=== PATIENT | female | born 1940 | race Hispanic/Latino ===

== ENCOUNTER → 2017-12-10 | Day surgery (SDC) | payer MEDICARE, BC ==
[2017-12-08 12:04] LABS: BASOPHILS % 0.6 % (0.0-1.0); EOSINOPHILS % 0.1 % (0.0-6.0); HEMATOCRIT 41.1 % (34.2-44.1); HEMOGLOBIN 13.4 g/dL (12.0-16.0); LYMPHOCYTES # (AUTO) 1.8 (1.0-3.2); LYMPHOCYTES % 25.5 % (18.0-39.1); MEAN CORPUSCULAR HEMOGLOBIN 31.6 pg (28-32); MEAN CORPUSCULAR HGB CONC 32.6 g/dL (31-35); MEAN CORPUSCULAR VOLUME 96.9 fL (81-99); MONOCYTES # (AUTO) 0.5 (0.2-0.8); MONOCYTES % 6.7 % (4.4-11.3); NEUTROPHILS # (AUTO) 4.8 (2.1-6.9); NEUTROPHILS % 66.7 % (38.7-80.0); PLATELET COUNT 214 x10e3/uL (140-360); RED BLOOD COUNT 4.24 x10e6/uL (3.6-5.1); RED CELL DISTRIBUTION WIDTH 13.1 % (11.7-14.4)
--- NOTE | 2017-12-08 12:28 | Diagnostic Imaging Report ---
PROCEDURE: Frontal and lateral views of the chest. COMPARISON: Chest x-ray 08/17/2014. INDICATIONS: PRE-OP, PORT REMOVAL. DENIES CHEST COMPLAINTS FINDINGS: Lines/tubes: Right-sided portacatheter with tip at the atrial caval junction. Median sternotomy wires are present and intact. Lungs: The lungs are well inflated and clear. Calcified granuloma in the right lung is unchanged. Calcified hilar lymph nodes are unchanged. There is no evidence of pneumonia or pulmonary edema. Pleura: There is no pleural effusion or pneumothorax. Heart and mediastinum: The heart and the mediastinum are normal. Atherosclerotic calcifications in the aorta remain unchanged. Bones: No acute bony abnormality. IMPRESSION: No acute cardiopulmonary disease. Dictated by: Sebastian Matt M.D. on 12/08/2017 at 12:30 Electronically approved by: Sebastian Matt M.D. on 12/08/2017 at 12:30
[2017-12-08 12:34] LABS: ANION GAP 12.8 mmol/L (8-16); CALCIUM 9.6 mg/dL (8.4-10.2); CREATININE, SERUM 1.35 mg/dL (0.57-1.11); POTASSIUM 3.8 mmol/L (3.5-5.1)
[~2017-12-10] MED LIST: AMLODIPINE BESY10 MG PO; AZOR 10-40 MG1 EACH PO; BUPIVACAINE 0.25%/EPI 30ML SDV INJ ONE; CARAFATE1 GM PO; DEXAMETHASONE SOD PHOS INJ 4 MG/ML VIAL ONE; EVISTA60 MG PO; KEFLEX500 MG PO; LIDOCAINE HCL 2% LOCAL INJ 5 ML SDV VIAL INJ ONE; MECLIZINE HCL12.5 MG PO; METOPROLOL TART50 MG PO; NEXIUM40 MG PO; NORCO 7.5-3251 EACH PO; ONDANSETRON HCL INJ 2 MG/ML VIAL ONE; PANTOPRAZOLE SO40 MG PO; PROPOFOL IV EMULSION 10 MG/ML 20 ML VIAL ONE; SEVOFLURANE INHAL SOLN 250 ML PEN BTL ONE; SIMVASTATIN40 MG PO
--- OUTSIDE RECORDS SUMMARY | 2017-12-10 06:23 | XMS REPORT ---
[facility] Address Unknown Phone Unavailable Care Team Providers Care Drain Cleaner Name Role Phone JEREMY HAWK Unavailable Unavailable Problems This patient has no known problems. Allergies, Adverse Reactions, Alerts This patient has no known allergies or adverse reactions. Medications This patient has no known medications. Results Test Description Test Time Test Comments Text Results Atomic Results Result Comments CHEST 2 VIEWS [place] [address] Patient Name: RYLAND OSMAN MR #: [id number] : 1940 Age/Sex: 77/F Req #: [id number] Adm Physician: Ordered by: JEREMY HAWK MD Report #: [id number] Location: OR Room/Bed: Procedure: [id number] DX/CHEST 2 VIEWS Exam Date: Exam Time: REPORT STATUS: Signed PROCEDURE: Frontal and lateral views of the chest. COMPARISON: Chest x-ray 08/17/2014. INDICATIONS: PRE-OP, PORT REMOVAL. DENIES CHEST COMPLAINTS FINDINGS: Lines/tubes: Right-sided portacatheter with tip at the atrial caval junction. Median sternotomy wires are present and intact. Lungs: The lungs are well inflated and clear. Calcified granuloma in the right lung is unchanged. Calcified hilar lymph nodes are unchanged. There is no evidence of pneumonia or pulmonary edema. Pleura: There is no pleural effusion or pneumothorax. Heart and mediastinum: The heart and the mediastinum are normal. Atherosclerotic calcifications in the aorta remain unchanged. Bones: No acute bony abnormality. IMPRESSION: No acute cardiopulmonary disease. Dictated by: James Matt M.D. on 12/08/2017 at 12:30 Electronically approved by: James Matt M.D. on 12/08/2017 at 12:30 Dictated By: JAMES MATT MD 1230 Transcribed By: LITA on 12/08/17 1230 COPY TO: JEREMY HAWK MD
--- NOTE | 2017-12-10 10:26 | Operative Report ---
DATE OF PROCEDURE: December 10, 2017 PREOPERATIVE DIAGNOSIS: Malfunctioning venous access port. POSTOPERATIVE DIAGNOSIS: Malfunctioning venous access port. OPERATION PERFORMED: Excision of right subclavian venous access port. ANESTHESIA: General. COMPLICATIONS: None. ESTIMATED BLOOD LOSS: Minimal. DESCRIPTION OF PROCEDURE: With the patient lying in bed in the supine position, under good general anesthesia, the left chest was prepped with Betadine solution and draped in the usual manner. The area overlying the port was then infiltrated with 1/4 percent Marcaine with epinephrine. An incision was made. It was carried down through the subcutaneous tissue and through the capsule of the Port-A-Cath. The Port-A-Cath was being held in place by 2 sutures of Ethibond which were then cut. The catheter was removed in its entirety without any difficulty. The capsule of the venous access port was then closed with interrupted sutures of 3-0 Vicryl, and the skin was closed with subcuticular 5-0 Vicryl. Benzoin and Steri-Strips were applied. A dressing was placed. The sponge, lap and needle count was correct. Patient tolerated the procedure well and returned to the recovery room in stable condition. Job#: [id number]
== END | disposition home or self-care (01) ==
LOC: OR 06:21
PROVIDERS: ATTEND Surgery
CPT/HCPCS: 36415; 71046; 80048; 85025; 93005; J1100; J2001; J2405

== ENCOUNTER → 2018-03-17 | Outpatient (CLI) | payer MEDICARE, BC ==
[~2018-03-17] MED LIST changes: -BUPIVACAINE 0.25%/EPI 30ML SDV INJ ONE; -DEXAMETHASONE SOD PHOS INJ 4 MG/ML VIAL ONE; -LIDOCAINE HCL 2% LOCAL INJ 5 ML SDV VIAL INJ ONE; -ONDANSETRON HCL INJ 2 MG/ML VIAL ONE; -PROPOFOL IV EMULSION 10 MG/ML 20 ML VIAL ONE; -SEVOFLURANE INHAL SOLN 250 ML PEN BTL ONE
[2018-03-17 08:56] LABS: FREE THYROXINE INDEX 2.4199 (1.4-3.8); THYROID STIMULATING HORMONE 0.473 uIU/mL (0.350-4.940)
--- NOTE | 2018-03-18 17:55 | Diagnostic Imaging Report ---
Thyroid Scan with Multiple Uptakes Reason for exam: 77 F with right thyroid mass Radiopharmaceutical: I-123 Carmen 0.31 mCi Report: After oral administration of I-123 Carmen, the 6-hour thyroid uptake of iodine is 4% (normal 4-14%) and the 24-hour uptake is 9% (normal 10-35%). Images of the thyroid was obtained in the anterior and anterior oblique projections. A large round focal area of relatively decreased tracer activity is seen along the lateral aspect of the right thyroid lobe. Otherwise, distribution of tracer activity throughout the right thyroid lobe is homogenous and the lobe has a normal appearance. The left thyroid lobe is normal in size with homogeneous distribution of tracer. The thyroid is in a normal anatomic location. A pyramidal lobe is not seen. There is no aberrant functioning thyroid tissue seen in the area scanned. Impression: 1. Large cold thyroid mass along the lateral aspect of the otherwise normal right thyroid lobe. Further evaluation to exclude malignancy is warranted. 2. Borderline decreased thyroid uptake of iodine is not clinically significant in this patient who is not thyrotoxic. Signed by: Dr. Heike Conte M.D. on 03/18/2018 4:24 PM
== END ==
LOC: NM 07:49
PROVIDERS: ATTEND Surgery
DX: R22.1 Localized swelling, mass and lump, neck (principal); E07.9 Disorder of thyroid, unspecified
CPT/HCPCS: 36415; 78014; 84436; 84443; 84479; A9516

== ENCOUNTER 2018-09-08 10:30 | Observation (INO) | payer MEDICARE, BC ==
--- NOTE | 2018-09-06 14:26 | Diagnostic Imaging Report ---
EXAMINATION: CHEST 2 VIEWS INDICATION: Preop. COMPARISON: None FINDINGS: TUBES and LINES: None. LUNGS: Lungs are well inflated. Calcified granulomata in the right lower lobe. There is no evidence of pneumonia or pulmonary edema. PLEURA: No pleural effusion or pneumothorax. HEART AND MEDIASTINUM: The cardiomediastinal silhouette is unremarkable. BONES AND SOFT TISSUES: No acute osseous lesion. Median sternotomy wires. Calcifications of the aortic arch. UPPER ABDOMEN: No free air under the diaphragm. IMPRESSION: No acute thoracic abnormality. Signed by: Dr. Gilda Escalante M.D. on 09/06/2018 2:23 PM
[~2018-09-08] VITALS: Ht 160 cm; Wt 52.8 kg
[~2018-09-08 10:30] MED LIST changes: +DOXYCYCLINE HY100 MG PO
[2018-09-08] MEDS ORDERED: ACETAMINOPHEN 1000 MG/100 ML IV PRN (14:15)
[2018-09-08] MEDS ORDERED: HYDROMORPHONE 2MG/ML 2 MG/ML ML IV PRN (14:15)
[2018-09-08] MEDS ORDERED: HYDROMORPHONE 1MG/1ML INJ IV PRN (14:15)
[2018-09-08] MEDS ORDERED: ONDANSETRON HCL INJ 2MG/ML 2ML 2 MG/ML VIAL IV PRN (14:15)
[2018-09-08] MEDS ORDERED: MORPHINE SULFATE INJ 4 MG/ML INJ 1ML ONE (14:34)
--- NOTE | 2018-09-08 14:45 | Operative Report ---
DATE OF PROCEDURE: September 08, 2018 PREOPERATIVE DIAGNOSIS: Mass of right lobe of the thyroid, rule out malignancy. POSTOPERATIVE DIAGNOSIS: Mass of right lobe of the thyroid, rule out malignancy, needs permanent section. OPERATION PERFORMED: Right thyroid lobectomy and isthmusectomy. WINE PASTEURIZER: Dr. Lisandro Washburn ANESTHESIA: General endotracheal. COMPLICATIONS: None. ESTIMATED BLOOD LOSS: Minimal. DESCRIPTION OF PROCEDURE: With the patient lying in bed in the supine position under good general endotracheal anesthesia, the neck was prepped with Betadine solution and draped in the usual manner. A collar incision was made. It was carried down through the subcutaneous tissue and through the platysma. Flaps were then developed superiorly and inferiorly, and the strap muscles were then at the midline. The strap muscles were then retracted on the right side. On the right side, there was a large mass that basically encompassed the complete right lobe of the thyroid. This is obviously a solid mass, but it was soft consistent clinically with an adenoma. The left lobe of the thyroid appeared to be rather small. There were no palpable abnormalities. We decided to go ahead and proceed with the right thyroidectomy. The upper pole vessels were then divided between 2-0 silk ties. The lower pole vessels were divided between 3-0 silk ties. The middle thyroid vein was identified and ligated with 3-0 silk and divided. The right lobe of the thyroid was then swung off of the trachea. The recurrent laryngeal nerve was identified and preserved during the entire dissection. The thyroid was then divided at the junction of the isthmus and the left lobe. It was sent for pathological examination. Frozen section came back as probably benign, pending permanent section. The whole area was then thoroughly irrigated. Perfect hemostasis was ascertained. A 0.25-inch Christiano drain was then left in the right side of the neck and brought out through the incision. The strap muscles then reapproximated at the midline with interrupted sutures of 3-0 Vicryl. The platysma was approximated with 3-0 Vicryl and the skin was closed with clips. Dressings were applied. The sponge, lap and needle count was correct. Patient tolerated the procedure well and returned to the recovery room in stable condition. Job#: [id number] [place]
--- NOTE | 2018-09-08 15:45 | NUR ---
Received patient from recovery. Patient A/O X3, even respirations on RA. Neck dressing is dry/intact. Patient is ambulatory with assist. Tolerating clear liquids at this time. Right FA 20 gauge IV with NS @ 100 mls/hr. SCD's in place at this time. Bowel sounds hypoactive. Call light in reach, will continue to monitor.
[2018-09-08] MEDS: SODIUM CHLORIDE 0.9% 1000ML 1,000 ML IV SCH (16:01)
[2018-09-08 16:24] VITALS: BP 161/70
[2018-09-08 16:59] VITALS: BP 161/70
[2018-09-08 17:04] VITALS: BP 161/70
[2018-09-08] MEDS: HYDROCODONE/APAP 7.5MG-325MG 1 EA TAB PO PRN ×2 (18:11→22:10)
[2018-09-08] MEDS ORDERED: FENTANYL CITRATE/PF 100MCG/2 ML INJ ONE (18:59)
[2018-09-08 19:00] VITALS: BP 134/62
--- NOTE | 2018-09-08 19:15 | NUR ---
patient recieved awake, alert, lying quietly in bed. no c/o pain noted. dressing to neck remains c,d,i. patient oob to bathroom with assistance. ivf continue to infuse without difficulty. pm assessment complete. patient instructed to call for assistance when needed.
[2018-09-08] MEDS ORDERED: NEOSTIGMINE 5 MG/5ML SYR ONE (19:49)
[2018-09-08] MEDS ORDERED: SEVOFLURANE INHAL SOLN 250 ML PEN BTL ONE (19:49)
[2018-09-08] MEDS ORDERED: EPHEDRINE SULFATE INJ 50 MG/10 ML SYR ONE (19:49)
[2018-09-08] MEDS ORDERED: LIDOCAINE HCL 2% LOCAL INJ 5 ML SDV VIAL INJ ONE (19:49)
[2018-09-08] MEDS ORDERED: ROCURONIUM BROMIDE 10 MG/ML 5ML VIAL ONE (19:49)
[2018-09-08] MEDS ORDERED: DEXAMETHASONE SOD PHOS INJ 4 MG/ML VIAL ONE (19:49)
[2018-09-08] MEDS ORDERED: ONDANSETRON HCL INJ 2MG/ML 2ML 2 MG/ML VIAL ONE (19:49)
[2018-09-08] MEDS ORDERED: GLYCOPYRROLATE INJ 1MG/ 5 ML SYR ONE (19:49)
[2018-09-08] MEDS ORDERED: PROPOFOL IV EMULSION 10 MG/ML 20 ML VIAL ONE (19:49)
[2018-09-08 20:00] VITALS: BP 134/62
[2018-09-08] MEDS ORDERED: METOPROLOL TARTRATE 50 MG TAB PO SCH (21:00)
[2018-09-08] MEDS ORDERED: AMLODIPINE BESYLATE 10 MG TAB PO SCH (21:00)
[2018-09-08] MEDS ORDERED: METOPROLOL TARTRATE 25 MG TAB PO SCH (21:00)
--- NOTE | 2018-09-08 22:10 | NUR ---
patient medicated with norco 7.5 mg po for c/o anterior neck pain 01/02. will continue to monitor.
[2018-09-09 00:02] VITALS: BP 131/60
[2018-09-09] MEDS: SODIUM CHLORIDE 0.9% 1000ML 1,000 ML IV SCH ×2 (00:25→10:40)
[2018-09-09] MEDS: HYDROCODONE/APAP 7.5MG-325MG 1 EA TAB PO PRN ×2 (02:29→09:45)
[2018-09-09 05:42] VITALS: BP 122/58
[2018-09-09 05:57] LABS: BASOPHILS % 0.1 % (0.0-1.0); HEMATOCRIT 34.3 % (34.2-44.1); HEMOGLOBIN 10.9 g/dL (12.0-16.0); LYMPHOCYTES # (AUTO) 1.1 (1.0-3.2); LYMPHOCYTES % 11.1 % (18.0-39.1); MEAN CORPUSCULAR HEMOGLOBIN 30.6 pg (28-32); MEAN CORPUSCULAR HGB CONC 31.8 g/dL (31-35); MEAN CORPUSCULAR VOLUME 96.3 fL (81-99); MONOCYTES # (AUTO) 0.6 (0.2-0.8); MONOCYTES % 6.1 % (4.4-11.3); NEUTROPHILS # (AUTO) 8.2 (2.1-6.9); NEUTROPHILS % 82.4 % (38.7-80.0); PLATELET COUNT 166 x10e3/uL (140-360); RED BLOOD COUNT 3.56 x10e6/uL (3.6-5.1); RED CELL DISTRIBUTION WIDTH 13.2 % (11.7-14.4)
[2018-09-09 06:25] LABS: ANION GAP 14.1 mmol/L (8-16); CREATININE, SERUM 0.99 mg/dL (0.57-1.11); POTASSIUM 4.1 mmol/L (3.5-5.1)
--- NOTE | 2018-09-09 07:02 | NUR ---
Received patient mid fowlers position, side rails upx2, call light within reach. AAOX4 to time, person,place, situation. Respirations even and unlabored. Dressing to neck clean, dry, and intact. Instructed patient to use call light for assistance. Voiced understanding.
[2018-09-09 08:00] VITALS: BP 135/64
[2018-09-09] MEDS ORDERED: MECLIZINE HCL 12.5 MG TAB PO PRN (08:30)
[2018-09-09 08:35] VITALS: BP 135/64
--- NOTE | 2018-09-09 10:35 | NUR ---
BURCIAGA EXPLAINED TO PT, SIGNED BY PT AND PLACED ON CHART COPY OF BURCIAGA PLACED IN PT CARE TRANSITION FOLDER
--- NOTE | 2018-09-09 12:12 | NUR ---
CASE MANAGEMENT ASSESSMENT Registry Rn to bedside to discuss plan of care with patient/family. CM/SW role and care transitions discussed. Anticipated discharge plan discussed along with duration of care. CM/SW discussed patients right to make decisions in care. CM/SW work hours given. Patient lives: with [place] Admit/Transfer: from PACU Hospital/ER visits since last admit: no recent admits; no ED visits POA/Emergency contact: [place] Petty [phone], daughter Joanne Hurtado [phone] Current/Previous Home Health: previously used [facility]; not on service at this time PCP/Follow-up Care: Dr. Osiris Henderson - PCP - pt saw PCP last week. CM advised pt to follow up with MD within 7 days of discharge. Will follow up with Dr. Rene Washburn as instructed Current/Previous DME: none Medications (referring to index hospitalization or the first time you were in the hospital) a. Were changes made in your medications when you were in the hospital on [date of index hospitalization]? no; pt states she has been on the same medications since 2013 b. Did you understand the changes? n/a c. Were you able to obtain your new medications right away? n/a d. Were you able to take your medications like the doctor wanted you to? yes e. Did the hospital give you an accurate, easy to understand list of medications when you left? n/a Scale of 1-10 how comfortable does patient feel with disease management in outpatient settin Other Services: none Employment Status: retired Areas of Concerns: thyroid mass Referral Needs: none Education Needs: medical management IMM/BURCIAGA given and signed (if applicable): BURCIAGA on chart, copy to pt Goal for discharge: home independently CM/SW left business card at the bedside with contact information. Name and number was also written on the patients whiteboard. Patient verbalized understanding of discussion. CM will follow-up with ongoing discharge and transition of care needs.
[2018-09-09 12:30] VITALS: BP 130/60
[2018-09-09 16:48] VITALS: BP 137/59
--- NOTE | 2018-09-09 17:55 | NUR ---
Dr.J Washburn at bedside changing neck dressing
[2018-09-09] MEDS ORDERED: KEFLEX500 MG PO (18:11)
[2018-09-09] MEDS ORDERED: TYLENOL # 31 EA PO (18:13)
--- NOTE | 2018-09-09 18:23 | NUR ---
Right FA IV discontinued. No signs of infiltration noted. 2x2 gauze and tape placed. AAOX4 to time, person, place, situation. Respirations even and unlabored. Dressing clean dry, and intact. Discharge instructions, rx, and all personal belongings taken with patient. Addendum: 09/09/18 at 1915 by MYKEL BLAKE RN Taken by PCT to personal car. Accompanied by
== END 2018-09-09 18:23 | disposition home or self-care (01) ==
LOC: OR 10:30 → PACU V 14:06 → MED/SURG 15:16
PROVIDERS: ADMIT Surgery; ATTEND Surgery
DX: D34 Benign neoplasm of thyroid gland (principal); K21.9 Gastro-esophageal reflux disease without esophagitis; I10 Essential (primary) hypertension; Z01.810 Encounter for preprocedural cardiovascular examination; Z01.812 Encounter for preprocedural laboratory examination; Z01.811 Encounter for preprocedural respiratory examination
CPT/HCPCS: 36415; 60220; 71046; 80048; 85025; 88305; 88331; 93005; G0378 ×2; J0131; J1100; J2001; J2270; J2405; J2704; J3490; J7030 ×2; J8597; 88307

== ENCOUNTER → 2020-12-19 | Outpatient (CLI) | payer MEDICARE, BC ==
[~2020-12-19] MED LIST changes: +TYLENOL # 31 EA PO
[2020-12-19 12:06] LABS: BASOPHILS % 0.5 % (0.0-1.0); EOSINOPHILS % 0.2 % (0.0-6.0); HEMATOCRIT 42.7 % (34.2-44.1); HEMOGLOBIN 13.3 g/dL (12.0-16.0); LYMPHOCYTES # (AUTO) 1.6 (1.0-3.2); LYMPHOCYTES % 24.5 % (18.0-39.1); MEAN CORPUSCULAR HEMOGLOBIN 30.4 pg (28-32); MEAN CORPUSCULAR HGB CONC 31.1 g/dL (31-35); MEAN CORPUSCULAR VOLUME 97.5 fL (81-99); MONOCYTES # (AUTO) 0.5 (0.2-0.8); MONOCYTES % 7.5 % (4.4-11.3); NEUTROPHILS # (AUTO) 4.3 (2.1-6.9); NEUTROPHILS % 67.1 % (38.7-80.0); PLATELET COUNT 199 x10e3/uL (140-360); RED BLOOD COUNT 4.38 x10e6/uL (3.6-5.1)
[2020-12-19 12:26] LABS: ALBUMIN 3.8 g/dL (3.5-5.0); ANION GAP 13.6 mmol/L (8-16); CALCIUM 8.9 mg/dL (8.4-10.2); CREATININE, SERUM 1.51 mg/dL (0.57-1.11); POTASSIUM 4.6 mmol/L (3.5-5.1)
== END ==
LOC: CARD 10:51
PROVIDERS: ATTEND Internal Medicine
CPT/HCPCS: 36415; 80053; 80061; 85025; 93925

== ENCOUNTER → 2021-10-03 | Outpatient (CLI) | payer MEDICARE, BC | LOC: MRI 09:30 | PROVIDERS: ATTEND Specialist | DX: S83.221A Peripheral tear of medial meniscus, current injury, right knee, initial encounter (principal); S83.261A Peripheral tear of lateral meniscus, current injury, right knee, initial encounter; M23.41 Loose body in knee, right knee; S83.521A Sprain of posterior cruciate ligament of right knee, initial encounter ==

== ENCOUNTER 2022-08-20 09:56 | Outpatient (RCR) | payer MEDICARE, BC ==
[~2022-08-20 09:56] MED LIST changes: +LEVOTHYROXINE75 MCG PO; +OMEPRAZOLE40 MG PO; +ZETIA10 MG PO
== END 2022-08-25 ==
LOC: PT 09:56
PROVIDERS: ATTEND Specialist
DX: Z47.89 Encounter for other orthopedic aftercare (principal); M17.11 Unilateral primary osteoarthritis, right knee; S83.261D Peripheral tear of lateral meniscus, current injury, right knee, subsequent encounter

== ENCOUNTER 2022-09-16 13:00 | Outpatient (RCR) | payer MEDICARE, BC | END 2022-09-22 | LOC: PT 13:00 | PROVIDERS: ATTEND Specialist | DX: Z47.89 Encounter for other orthopedic aftercare (principal); M17.11 Unilateral primary osteoarthritis, right knee; S83.261D Peripheral tear of lateral meniscus, current injury, right knee, subsequent encounter ==

== ENCOUNTER 2022-09-24 07:48 | Outpatient (RCR) | payer MEDICARE, BC | END 2022-10-23 | LOC: PT 07:48 | PROVIDERS: ATTEND Specialist | DX: M17.11 Unilateral primary osteoarthritis, right knee (principal); S83.261D Peripheral tear of lateral meniscus, current injury, right knee, subsequent encounter; Z47.89 Encounter for other orthopedic aftercare ==

== ENCOUNTER 2025-03-09 06:58 | Inpatient (IN) | payer MEDICARE, BC ==
[2025-03-06 10:36] LABS: BASOPHILS % 0.7 % (0.0-1.0); EOSINOPHILS % 0.3 % (0.0-6.0); LYMPHOCYTES % 25.3 % (18.0-39.1); MONOCYTES % 10.2 % (4.4-11.3); NEUTROPHILS % 63.4 % (38.7-80.0); RED CELL DISTRIBUTION WIDTH 14.6 % (11.7-14.4)
[2025-03-06 10:57] LABS: EST GLOMERULAR FILTRATION RATE 29.0 ML/MIN (>=60)
[~2025-03-09] VITALS: Ht 157.5 cm; Wt 45.8 kg
[~2025-03-09 06:58] MED LIST changes: +KERENDIA10 MG PO; +LOSARTAN POTASS25 MG PO
[2025-03-09] MEDS: LACTATED RINGER'S 1,000 ML ONE (07:55)
[2025-03-09] MEDS ORDERED: FENTANYL CITRATE/PF 100MCG/2 ML INJ ONE (08:26)
[2025-03-09] MEDS ORDERED: LIDOCAINE HCL 2% LOCAL INJ 5 ML SDV VIAL INJ ONE (08:26)
[2025-03-09] MEDS ORDERED: ROCURONIUM BROMIDE 1 ML IV ONE (08:26)
[2025-03-09] MEDS ORDERED: PROPOFOL IV EMULSION 10 MG/ML 20 ML VIAL ONE (08:27)
[2025-03-09] MEDS ORDERED: SEVOFLURANE INHAL SOLN 250 ML PEN BTL ONE (08:27)
[2025-03-09] MEDS ORDERED: ACETAMINOPHEN 1000 MG/100 ML 100 ML IV ONE (08:27)
[2025-03-09] MEDS ORDERED: PHENYLEPHRINE HCL 1% 10 MG/ML VIAL ONE (08:27)
[2025-03-09] MEDS ORDERED: SODIUM CHLORIDE 0.9% 100 ML ONE (08:27)
[2025-03-09] MEDS ORDERED: ONDANSETRON HCL INJ 2MG/ML 2ML 2 MG/ML VIAL ONE (09:50)
[2025-03-09] MEDS ORDERED: DEXAMETHASONE SOD PHOS INJ 4 MG/ML SDV ONE (09:50)
[2025-03-09] MEDS ORDERED: FAMOTIDINE 20 MG/2 ML VIAL IV ONE (09:50)
[2025-03-09] MEDS ORDERED: EPHEDRINE SULFATE INJ 50 MG/ML VIAL ONE (09:52)
[2025-03-09] MEDS ORDERED: SUGAMMADEX SODIUM 200 MG/2 ML VIAL IV ONE (11:06)
[2025-03-09] MEDS ORDERED: LACTATED RINGER'S 1,000 ML ONE (11:36)
[2025-03-09] MEDS ORDERED: ONDANSETRON HCL INJ 2MG/ML 2ML 2 MG/ML VIAL IV PRN (12:00)
[2025-03-09] MEDS: FENTANYL CITRATE/PF 100MCG/2 ML INJ ONE (12:20)
[2025-03-09 13:23] VITALS: BP 167/58; PULSE 64; RESP 16; O2SAT 99
[2025-03-09] MEDS: SODIUM CHLORIDE 0.9% 1000ML 1,000 ML IV SCH (13:57)
[2025-03-09] MEDS: ACETAMINOPHEN 1000 MG/100 ML IV PRN (13:58)
[2025-03-09 14:05] VITALS: BP 147/61; PULSE 59; RESP 20; TEMP 97.2; O2SAT 99
[2025-03-09] MEDS: HYDROCODONE/APAP 5MG-325MG TAB PO PRN (15:04)
[2025-03-09 16:22] VITALS: BP 146/61; PULSE 76; RESP 18; O2SAT 100
[2025-03-09 20:00] VITALS: BP 130/70; PULSE 72; RESP 18; TEMP 97.6; O2SAT 100
[2025-03-09] MEDS ORDERED: METOPROLOL TARTRATE 50 MG TAB PO SCH (21:00)
[2025-03-09] MEDS: METOPROLOL SUCCINATE 25 MG TAB XL PO SCH (21:34)
[2025-03-10] VITALS (7 sets, daily range): BP systolic 146–166; BP diastolic 61–86; PULSE 60–72; RESP 17–18; TEMP 96.8–98; O2SAT 96–100
[2025-03-10 07:27] LABS: BASOPHILS % 0.1 % (0.0-1.0); EOSINOPHILS % 0.0 % (0.0-6.0); LYMPHOCYTES % 5.7 % (18.0-39.1); MONOCYTES % 5.4 % (4.4-11.3); NEUTROPHILS % 88.2 % (38.7-80.0); RED CELL DISTRIBUTION WIDTH 14.5 % (11.7-14.4)
[2025-03-10] MEDS: AMLODIPINE BESYLATE 10 MG TAB PO SCH (07:56)
[2025-03-10] MEDS: LOSARTAN POTASSIUM 25 MG TAB PO SCH (07:56)
[2025-03-10 07:58] LABS: EST GLOMERULAR FILTRATION RATE 46.0 ML/MIN (>=60)
[2025-03-10] MEDS ORDERED: EZETIMIBE 10 MG TAB PO SCH (09:00)
[2025-03-10] MEDS: HYDROMORPHONE 1MG/1ML INJ IV PRN (09:25)
[2025-03-10] MEDS ORDERED: PANTOPRAZOLE SOD 40 MG TABEC PO SCH (17:00)
[2025-03-10] MEDS: EZETIMIBE 10 MG TAB PO SCH (20:40)
[2025-03-11] VITALS: BP 144/64; PULSE 61; RESP 19; TEMP 97.7; O2SAT 100
[2025-03-11 04:00] VITALS: BP 162/78; PULSE 68; RESP 20; TEMP 97.8; O2SAT 97
[2025-03-11] MEDS: PANTOPRAZOLE SOD 40 MG TABEC PO SCH (06:29)
[2025-03-11 07:00] VITALS: BP 159/68; PULSE 67; RESP 18; TEMP 98.1; O2SAT 100
[2025-03-11 11:00] VITALS: BP 146/81; PULSE 79; RESP 18; TEMP 98.3; O2SAT 100
[2025-03-11 16:00] VITALS: BP 146/58; PULSE 58; RESP 18; TEMP 98.3; O2SAT 100
[2025-03-11 20:00] VITALS: BP 137/68; PULSE 86; RESP 16; TEMP 98.1; O2SAT 100
[2025-03-12 01:07] VITALS: BP 139/71; PULSE 79; RESP 16; TEMP 97.7; O2SAT 100
[2025-03-12 05:55] VITALS: BP 147/80; PULSE 80; RESP 16; TEMP 97.8; O2SAT 100
[2025-03-12 07:10] VITALS: BP 148/70; PULSE 78; RESP 18; TEMP 98.3; O2SAT 100
[2025-03-12 07:48] VITALS: BP 148/70; PULSE 78; RESP 18; TEMP 98.3; O2SAT 99
[2025-03-12] MEDS: BISACODYL 10 MG SUPP PR ONE (09:17)
[2025-03-12] MEDS ORDERED: ONDANSETRON HCL 4 MG ORAL DISINTEGRATING TAB PO PRN (11:15)
[2025-03-12 11:30] VITALS: BP 146/70; PULSE 69; RESP 19; TEMP 98; O2SAT 100
== END 2025-03-12 14:00 | disposition home or self-care (01) | DRG 353 ==
LOC: OR 06:58 → PACU V 12:27 → MED/SURG 13:10 → OBSVTOIN 03-10 12:26
PROVIDERS: ADMIT Surgery; ATTEND Surgery
PROC: 0WUF0JZ Supplement Abdominal Wall with Synthetic Substitute, Open Approach (ICD-10-PCS; principal; 2025-03-09 09:41)
DX: K43.6 Other and unspecified ventral hernia with obstruction, without gangrene (principal); E43 Unspecified severe protein-calorie malnutrition; Z68.1 Body mass index [BMI] 19.9 or less, adult; I10 Essential (primary) hypertension; Z90.49 Acquired absence of other specified parts of digestive tract; Z95.1 Presence of aortocoronary bypass graft
CPT/HCPCS: 36415; 71046; 80048; 80053; 82948; 85025; 93005; C1781; G0378; J0690; J1100; J1171; J1308; J2003; J2371; J2405; J2470; J7030; J7050